=== PATIENT | female | born 1990 | race Hispanic/Latino ===

== ENCOUNTER 2024-05-04 12:26 | Emergency (ER) | payer OTHER ==
[~2024-05-04] VITALS: Ht 152.4 cm; Wt 70.3 kg
[2024-05-04 12:30] VITALS: TEMP 98.7
[2024-05-04] MEDS: ACETAMINOPHEN 325 MG TAB PO ONE (12:52)
[2024-05-04] MEDS: SODIUM CHLORIDE 0.9% 1000ML 1,000 ML IV STA (12:52)
[2024-05-04 13:01] LABS: BASOPHILS % 0.2 % (0.0-1.0); EOSINOPHILS % 0.1 % (0.0-6.0); HEMATOCRIT 36.5 % (34.2-44.1); LYMPHOCYTES # (AUTO) 1.1 (1.0-3.2); LYMPHOCYTES % 8.6 % (18.0-39.1); MEAN CORPUSCULAR HEMOGLOBIN 27.4 pg (28-32); MEAN CORPUSCULAR HGB CONC 32.9 g/dL (31-35); MEAN CORPUSCULAR VOLUME 83.3 fL (81-99); MONOCYTES # (AUTO) 0.5 (0.2-0.8); MONOCYTES % 3.8 % (4.4-11.3); NEUTROPHILS # (AUTO) 11.4 (2.1-6.9); NEUTROPHILS % 86.9 % (38.7-80.0); PLATELET COUNT 208 x10e3/uL (140-360); RED BLOOD COUNT 4.38 x10e6/uL (3.6-5.1); RED CELL DISTRIBUTION WIDTH 12.6 % (11.7-14.4); WHITE BLOOD COUNT 13.12 x10e3/uL (4.8-10.8)
[2024-05-04 13:10] LABS: INR 0.95; PROTHROMBIN TIME 13.3 seconds (11.9-14.5)
[2024-05-04 13:11] LABS: PARTIAL THROMBOPLASTIN TIME 28.4 seconds (23.8-35.5)
[2024-05-04 13:18] LABS: ALBUMIN 3.1 g/dL (3.5-5.0); ALBUMIN/GLOBULIN RATIO 0.8 (0.8-2.0); ANION GAP 12.7 mmol/L (8-16); BILIRUBIN,TOTAL 0.4 mg/dL (0.2-1.2); CALCIUM 8.8 mg/dL (8.4-10.2); CREATININE, SERUM 0.64 mg/dL (0.57-1.11); POTASSIUM 3.7 mmol/L (3.5-5.1); TOTAL PROTEIN 6.8 g/dL (6.5-8.1)
[2024-05-04 13:34] LABS: CLARITY,URINE CLEAR (CLEAR); COLOR,URINE YELLOW (YELLOW); LEUKOCYTE ESTERASE ,URINE NEGATIVE (NEGATIVE); NITRITE,URINE NEGATIVE (NEGATIVE); PH,URINE 6 (5 - 7)
[2024-05-04 13:35] LABS: BACTERIA,URINE MODERATE /HPF; BILIRUBIN,URINE NEGATIVE (NEGATIVE); EPITHELIAL CELLS,URINE MODERATE /LPF; GLUCOSE, URINE NEGATIVE (NEGATIVE); KETONES,URINE NEGATIVE (NEGATIVE); PROTEIN,URINE DIPSTICK 1+ (NEGATIVE); RBC,URINE 0-5 /HPF (0-5); URINE UROBILINOGEN 0.2 mg/dL (0.2 - 1)
[2024-05-04 14:18] LABS: HCG,QUANTITATIVE 40991.78 mIU/mL (0-10)
[2024-05-04] MEDS ORDERED: CEFDINIR300 MG PO (15:37)
[2024-05-04 15:45] VITALS: PULSE 86; RESP 18; O2SAT 100
== END 2024-05-04 15:50 | disposition home or self-care (01) ==
LOC: ER 12:38
DX: O23.41 Unspecified infection of urinary tract in pregnancy, first trimester (principal); N39.0 Urinary tract infection, site not specified; O21.0 Mild hyperemesis gravidarum; R10.13 Epigastric pain
CPT/HCPCS: 36415; 76815; 80053; 81001; 84702; 85025; 85610; 85730; 87086; 99284; J7030